=== PATIENT | male | born 1990 | race Caucasian/White ===

== ENCOUNTER 2016-12-02 16:59 | Emergency (ER) | payer SELFPAY ==
[~2016-12-02] VITALS: Ht 165.1 cm; Wt 70.3 kg
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
[2016-12-02] MEDS ORDERED: IV NS 0.9% 1,000 ML BAG IV ONE ×2 (17:30→18:00)
[2016-12-02 17:31] LABS: BASOPHILS % (AUTO) 0.5 % (0.0-2.0); EOSINOPHILS % (AUTO) 0.2 % (0.0-6.0); HEMATOCRIT 41 % (39-51); HEMOGLOBIN 13.7 g/dL (13.5-17.5); LYMPHOCYTES # (AUTO) 0.7 /CMM (0.8-4.8); LYMPHOCYTES % (AUTO) 12.3 % (20.0-44.0); MEAN CORPUSCULAR HEMOGLOBIN 31 PG (26.0-33.0); MEAN CORPUSCULAR HGB CONC 34 g/dl (31.0-36.0); MEAN CORPUSCULAR VOLUME 93 fL (80-96); MONOCYTES # (AUTO) 0.4 /CMM (0.1-1.30); MONOCYTES % (AUTO) 7.5 % (2.0-12.0); NEUTROPHILS # (AUTO) 4.2 /CMM (1.8-8.9); NEUTROPHILS % (AUTO) 79.5 % (43.0-81.0); PLATELET COUNT (AUTO) 184 /CMM (150-450); RED BLOOD CELL COUNT(AUTO) 4.37 MIL/uL (4.5-6.0); WHITE BLOOD COUNT (AUTO) 5.3 K/uL (4.3-11.0)
--- NOTE | 2016-12-02 17:32 | NUR ---
URINE SAMPLE SENT TO LAB
[2016-12-02 17:33] LABS: APPEARANCE,URINE Clear (CLEAR); BILIRUBIN,URINE SMALL (NEGATIVE); BLOOD, URINE Moderate Ery/uL (NEGATIVE); COLOR,URINE Yellow (YELLOW); KETONES,URINE 80 (NEGATIVE); LEUKOCYTE ESTERASE ,URINE Negative (NEGATIVE); NITRITE, URINE Negative (NEGATIVE); PROTEIN,URINE >=300 mg/dl (NEGATIVE); UGLUCOSE Negative (NEGATIVE)
--- NOTE | 2016-12-02 17:37 | NUR ---
PT WAS TAKEN TO CT
[2016-12-02 17:46] LABS: ALBUMIN 3.5 g/dL (3.4-5.0); BILIRUBIN,DIRECT 0.1 mg/dL (0.0-0.2); BILIRUBIN,TOTAL 0.3 mg/dL (0.2-1.0); CALCIUM, SERUM 7.4 mg/dL (8.5-10.1); CREATININE 0.9 mg/dL (0.6-1.3); POTASSIUM 3.8 mmol/L (3.5-5.1); TOTAL PROTEIN, SERUM 7.9 g/dL (6.4-8.2)
[2016-12-02 17:47] LABS: SALICYLATE 1.2 mg/dL (2.8-20.0)
[2016-12-02 18:08] LABS: RBC,URINE 0-2 /HPF (0-2)
[2016-12-02 18:09] LABS: BACTERIA,URINE Rare /HPF (None Seen); MUCUS,URINE Moderate /LPF (None Seen); SQUAMOUS EPITHELIAL CELL,UR Few /HPF (None Seen); URINE AMORPHOUS URATE Many /HPF (None Seen)
--- NOTE | 2016-12-02 22:15 | NUR ---
PATIENT AWAKE, VSS
[2016-12-03] MEDS ORDERED: ONDANSETRON HCL/PF 4 MG/2 ML VIAL ONE (02:16)
[2016-12-03] MEDS ORDERED: ONDANSETRON HCL/PF 4 MG/2 ML VIAL IV ONE (02:30)
[2016-12-03] MEDS ORDERED: CHLORDIAZEPOXIDE HCL 25 MG CAPSULE ONE (02:38)
[2016-12-03] MEDS ORDERED: CHLORDIAZEPOXIDE HCL 25 MG CAPSULE PO ONE (03:00)
--- NOTE | 2016-12-03 05:02 | NUR ---
pt ok to discharge per dr gould. IV removed. Catheter intact and site benign. Pressure and 4x4 applied to site. No bleeding noted.Patient discharged to home in stable condition. Written and verbal after care instructions given. Patient verbalizes understanding of instruction.Patient is awake and alert to self, day, and place. pt ambulatory with a steady gait
[2016-12-03 06:36] VITALS: BP 132/84
== END 2016-12-03 05:02 | disposition home or self-care (01) ==
LOC: ER 17:03 → EDBD 17:03 → ER 12-03 05:02
DX: F10.129 Alcohol abuse with intoxication, unspecified (principal); E86.0 Dehydration; F19.10 Other psychoactive substance abuse, uncomplicated; R41.82 Altered mental status, unspecified
CPT/HCPCS: 36415; 70450-TC; 80048-TC; 80076-TC; 80305; 81000-TC; 85025-TC; A4606; G0480; J2405; J7030; Z7610